=== PATIENT | female | born 1940 | race Caucasian/White ===

== ENCOUNTER 2016-10-21 07:44 | Day surgery (SDC) | payer OTHER ==
[~2016-10-21] VITALS: Ht 160 cm; Wt 48.0 kg
[~2016-10-21 07:44] MED LIST: ADVAIR HFA120 INHAL1 IH; ALBUTEROL2.5 MG/3 M IH; AMBIEN10 MG PO; AMBIEN5 MG PO; AMLODIPINE BESY10 MG PO; AMLODIPINE BESYL5 MG PO; APRESOLINE50 MG PO; ASPIR 8181 M1 PO; ASPIRIN81 M1 PO; ATORVASTATIN CA20 MG PO; AZITHROMYCIN250 MG PO; Aspirin E.C. PO; BACID1 CAP PO; BACTRIM,SEPT1 TABLET PO; BENGAY GREASEL113 GM TP; BREO ELLIPTA I1 EACH IH; BUMETANIDE1 MG PO; Bentyl PO; CALC ACETATE PO; CALCITRIOL0.25 MCG PO; CALCIUM 600 +1 EAC2 PO; CALCIUM ACETAT667 MG PO; CARVEDILOL12.5 MG PO; CARVEDILOL25 MG PO; CARVEDILOL3.125 MG PO; CARVEDILOL6.25 MG PO; CEFTIN500 MG PO; CEPHALEXIN500 MG PO; CIPRO500 MG PO; CLEOCIN150 MG PO; COREG12.5 M1 PO; COREG25 M1 PO; COREG6.25 M1 PO; COZAAR50 MG PO; CYANOCOBAL1000 MCG/2 IM; Coreg PO; DAILY VALUE1 EACH PO; DECADRON1 MG PO; DIGITEK125 MC2 PO; DOXYCYCLINE HY100 MG PO; ELIQUIS5 MG PO; ERGOCALCIF50000 UNIT PO; EVAC-U-GEN8.6 MG PO; FEOSOL325 MG PO; FERROUS SULFAT325 MG PO; FLAGYL500 MG PO; FLEXERIL5 MG PO; FLONASE16 G1 BOTH NARES; FLUTICASONE PRO16 GM BOTH NARES; FOLIC ACID1 MG PO; FUROSEMIDE40 MG PO; FUROSEMIDE80 MG PO; Feosol PO; Folvite PO; GABAPENTIN600 MG PO; HYDRALAZINE HCL50 MG PO; Heparin Sodium SC; ISOSORBIDE MONO30 MG PO; ISOSORBIDE MONO60 MG PO; K-DUR20 MEQ PO; LACTINEX PACKE1 EACH PO; LANOXIN,DIGI0.125 MG PO; LASIX40 MG PO; LEVAQUIN500 MG PO; LEVO-T50 MCG PO; LEVOTHYROXINE100 MCG PO; LEVOTHYROXINE50 MCG PO; LEVOXYL50 MCG PO; LIDOCAINE-PRIL1 EACH TP; LO-DOSE ASPIRIN81 M1 PO; LOSARTAN POTAS100 MG PO; LOSARTAN POTASS50 MG PO; Lactinex,Floranex PO; Lasix PO; NEPRO PO; NEURONTIN100 MG PO; NITRO-BID30 GM TP; NORVASC10 MG PO; NYSTATIN100000 UN1 PO; NYSTATIN15 GM TP; Norvasc PO; OMEPRAZOLE40 M1 PO; OXYCODONE HCL10 MG PO; OXYCODONE HCL5 M1 PO; Oscal, Oyster Shell PO; PERCOCET 10/1 TABLET PO; PERCOCET 5/31 TABLET PO; PRAVACHOL40 MG PO; PRAVASTATIN SOD40 MG PO; PREDNISONE10 MG PO; PREDNISONE5 MG PO; PROAIR HFA8.5 GM IH; PROVENTIL,2.5 MG/3 M IH; Proventil,Ventolin H IH; RENVELA800 MG PO; ROXICODONE5 MG PO; SENNA8.6 MG PO; SERTRALINE HCL100 MG PO; SERTRALINE HCL50 MG PO; SILVADENE20 GM TP; SODIUM BICARBO325 M1 PO; SODIUM BICARBO325 MG PO; ST. JOSEPH ASPI81 MG PO; SYNTHROID100 MCG PO; Sodium Bicarbonate PO; TRIPLE ANTIB28.35 GM TP; TUMS ULTRA1000 MG PO; VANCOCIN HCL125 MG PO; VANCOMYCIN1 GM/250 M IV; VENTOLIN HFA18 GM IH; VITAMIN B125000 MCG PO; VITAMIN C500 M1 PO; VITAMIN D1000 UNIT PO; VITAMIN D250000 UNIT PO; VITAMIN D32000 UNIT PO; VOLTAREN 1% GE100 GM TP; Vancocin Oral Soluti PO; Vitamin D PO; ZOLOFT100 MG PO; ZOLOFT25 MG PO; oxyCODONE PO; predniSONE PO
[2016-10-21 09:38] LABS: METH RESISTANT S AUREUS PCR POSITIVE (NEGATIVE)
[2016-10-21 09:39] LABS: PROBE CHECK PASS
[2016-10-22] MEDS ORDERED: CALCIUM ACETAT667 M2 PO (18:38)
[2016-10-22] MEDS ORDERED: DULERA 200 MCG/13 GM IH (18:39)
[2016-10-22] MEDS ORDERED: LUNESTA2 MG PO (18:40)
[2016-10-22] MEDS ORDERED: NEPHRO-VITE,1 TABLET PO (18:42)
[2016-10-22] MEDS ORDERED: ECONAZOLE NITRA15 GM TP (18:43)
== END 2016-10-21 10:35 | disposition home or self-care (01) ==
LOC: CATH 07:44
PROVIDERS: Surgery
DX: T82.858A Stenosis of other vascular prosthetic devices, implants and grafts, initial encounter (principal); Y83.2 Surgical operation with anastomosis, bypass or graft as the cause of abnormal reaction of the patient, or of later complication, without mention of misadventure at the time of the procedure; Z99.2 Dependence on renal dialysis
CPT/HCPCS: 87081; 87641; C1725; C1769; C1894; J0690; J1644; J2250; J3010; S0020

== ENCOUNTER 2016-12-24 11:52 | Inpatient (IN) | payer OTHER ==
[~2016-12-24] VITALS: Ht 167.6 cm; Wt 52.8 kg
[~2016-12-24 11:52] MED LIST changes: +APRESOLINE25 MG PO; +ASPIR-LOW81 MG PO; +CALCIUM ACETAT667 M2 PO; +COUMADIN1 MG PO; +DIGOXIN125 MCG PO; +DULERA 200 MCG/13 GM IH; +ECONAZOLE NITRA15 GM TP; +LUNESTA2 MG PO; +NEPHRO-VITE,1 TABLET PO
[2016-12-24 13:11] LABS: EOSINOPHIL COUNT 0.1 K/uL (0-0.3); HEMATOCRIT 36.2 % (36.0-46.0); IMMATURE GRANULOCYTE (%) 0.5 % (0.0-0.7); IMMATURE GRANULOCYTE COUNT 0.1 K/uL; INSTRUMENT ABS NEUTROPHIL CT 9.6 K/uL; LYMPHOCYTE COUNT 0.7 K/uL (1.0-2.8); MCH 30.7 PG (29.0-34.0); MCHC 31.8 G/DL (30.0-36.0); MCV 96.5 FL (83-99); MEAN PLAT.VOLUME 9.2 uM^3 (9.5-12.4); MONOCYTE (%) 7.1 % (3-12); MONOCYTE COUNT 0.8 K/uL (0-0.8); NEUTROPHIL (%) 85.1 % (45-76); NEUTROPHIL COUNT 9.6 K/uL (1.8-6.4); PLATELET COUNT 243 K/uL (156-360); RBC DIS.WIDTH-CV 14.6 % (11.8-14.6); RBC DIS.WIDTH-SD 51.1 % (39-53); RED BLOOD COUNT 3.75 M/uL (3.80-5.20); WHITE BLOOD COUNT 11.2 K/uL (4.1-10.2)
[2016-12-24 13:18] LABS: CHLORIDE 99 mEq/L (99-109); SODIUM 137 mEq/L (136-147)
[2016-12-24 13:20] LABS: GLUCOSE 95 mg/dL (70-99)
[2016-12-24 13:21] LABS: ANION GAP 23 MEQ/L (2-14)
[2016-12-24 13:22] LABS: POTASSIUM 6.6 mEq/L (3.7-5.4)
[2016-12-24 13:24] LABS: GFR ESTIMATE (CALCULATED) 3 mL/min/; UREA NITROGEN (BUN) 78 mg/dL (9-23)
[2016-12-24 22:33] LABS: CHLORIDE 99 mEq/L (99-109); POTASSIUM 3.7 mEq/L (3.7-5.4); SODIUM 136 mEq/L (136-147)
[2016-12-24 22:35] LABS: GLUCOSE 172 mg/dL (70-99)
[2016-12-24 22:36] LABS: ANION GAP 12 MEQ/L (2-14)
[2016-12-24 22:38] LABS: GFR ESTIMATE (CALCULATED) 8 mL/min/
[2016-12-24 22:39] LABS: UREA NITROGEN (BUN) 25 mg/dL (9-23)
[2016-12-24 22:44] LABS: TROP-I INTERPRETATION NEGATIVE
[2016-12-24 23:54] LABS: POINT-OF-CARE METER ID UU13113725
[2016-12-25] VITALS: BP 181/59
[2016-12-25 06:26] LABS: BASOPHIL COUNT 0.1 K/uL (0-0.1); EOSINOPHIL (%) 5.4 % (0-5); EOSINOPHIL COUNT 0.5 K/uL (0-0.3); HEMATOCRIT 35.3 % (36.0-46.0); IMMATURE GRANULOCYTE (%) 0.4 % (0.0-0.7); INSTRUMENT ABS NEUTROPHIL CT 6.6 K/uL; LYMPHOCYTE COUNT 0.8 K/uL (1.0-2.8); MCH 30.6 PG (29.0-34.0); MCHC 31.2 G/DL (30.0-36.0); MCV 98.3 FL (83-99); MEAN PLAT.VOLUME 9.1 uM^3 (9.5-12.4); MONOCYTE (%) 10.7 % (3-12); NEUTROPHIL (%) 73.7 % (45-76); NEUTROPHIL COUNT 6.6 K/uL (1.8-6.4); PLATELET COUNT 236 K/uL (156-360); RBC DIS.WIDTH-CV 14.6 % (11.8-14.6); RBC DIS.WIDTH-SD 52.7 % (39-53); RED BLOOD COUNT 3.59 M/uL (3.80-5.20); WHITE BLOOD COUNT 8.9 K/uL (4.1-10.2)
[2016-12-25 06:42] LABS: ANION GAP 12 MEQ/L (2-14); CHLORIDE 99 MEQ/L (99-109); GFR ESTIMATE (CALCULATED) 7 mL/min/; POTASSIUM 4.4 MEQ/L (3.7-5.4); SAMPLE HEMOLYSIS CHECK 0; SAMPLE ICTERIC CHECK 0; SAMPLE LIPEMIA CHECK 0; SODIUM 139 MEQ/L (136-147); UREA NITROGEN (BUN) 28 mg/dL (9-23)
[2016-12-25 06:50] LABS: GLUCOSE 87 mg/dL (70-99)
[2016-12-25 07:33] VITALS: BP 173/75
[2016-12-25 08:58] LABS: INFLUENZA A VIRAL ANTIGEN NEGATIVE; INFLUENZA B VIRAL ANTIGEN NEGATIVE
[2016-12-25] MEDS ORDERED: GABAPENTIN100 MG PO (10:35)
[2016-12-25] MEDS ORDERED: LEVO-T25 MCG PO (10:36)
[2016-12-25] MEDS ORDERED: ARNUITY ELLIP100 MCG AEROSOL (10:37)
[2016-12-25] MEDS ORDERED: OXYCODONE HCL10 MG PO (10:38)
[2016-12-25] MEDS ORDERED: SERTRALINE HCL25 MG PO (10:39)
[2016-12-25] MEDS ORDERED: COUMADIN1 MG PO (10:40)
[2016-12-25 13:03] LABS: INTER. NORMALIZED RATIO 2.6; PROTHROMBIN TIME 27.1 (9.2-11.2); PTT 45.3 (25-32)
[2016-12-25 15:15] VITALS: BP 167/74
[2016-12-25 21:04] LABS: POINT-OF-CARE METER ID UU13113725
[2016-12-25 22:58] VITALS: BP 167/95
[2016-12-26 06:33] LABS: POINT-OF-CARE METER ID UU13113725
[2016-12-26 07:38] LABS: BASOPHIL COUNT 0.1 K/uL (0-0.1); EOSINOPHIL (%) 7.7 % (0-5); EOSINOPHIL COUNT 0.6 K/uL (0-0.3); HEMATOCRIT 35.4 % (36.0-46.0); IMMATURE GRANULOCYTE (%) 0.4 % (0.0-0.7); INSTRUMENT ABS NEUTROPHIL CT 5.1 K/uL; LYMPHOCYTE COUNT 0.8 K/uL (1.0-2.8); MCH 30.4 PG (29.0-34.0); MCHC 30.8 G/DL (30.0-36.0); MCV 98.6 FL (83-99); MONOCYTE COUNT 0.7 K/uL (0-0.8); NEUTROPHIL (%) 69.7 % (45-76); NEUTROPHIL COUNT 5.1 K/uL (1.8-6.4); PLATELET COUNT 243 K/uL (156-360); RBC DIS.WIDTH-CV 14.4 % (11.8-14.6); RBC DIS.WIDTH-SD 51.5 % (39-53); RED BLOOD COUNT 3.59 M/uL (3.80-5.20); WHITE BLOOD COUNT 7.3 K/uL (4.1-10.2)
[2016-12-26 07:42] VITALS: BP 163/70
[2016-12-26 08:02] LABS: PROTHROMBIN TIME 21.2 (9.2-11.2)
[2016-12-26 08:05] LABS: ALKALINE PHOSPHATASE 87 IU/L (3-129); ANION GAP 16 MEQ/L (2-14); CHLORIDE 99 MEQ/L (99-109); GFR ESTIMATE (CALCULATED) 5 mL/min/; POTASSIUM 4.4 MEQ/L (3.7-5.4); SAMPLE HEMOLYSIS CHECK 0; SAMPLE ICTERIC CHECK 0; SAMPLE LIPEMIA CHECK 0; SODIUM 139 MEQ/L (136-147); TOTAL BILIRUBIN 0.5 MG/DL (0.0-1.0); UREA NITROGEN (BUN) 41 mg/dL (9-23)
[2016-12-26 08:06] LABS: GLUCOSE 132 mg/dL (70-99)
[2016-12-26 12:05] LABS: POINT-OF-CARE METER ID UU13113725
[2016-12-26 15:00] VITALS: BP 160/78
[2016-12-26 22:10] VITALS: BP 174/75
[2016-12-27 06:03] LABS: POINT-OF-CARE METER ID UU13113725
[2016-12-27 06:44] LABS: INTER. NORMALIZED RATIO 1.9; PROTHROMBIN TIME 20.1 (9.2-11.2)
[2016-12-27 07:16] VITALS: BP 172/72
[2016-12-27 07:21] LABS: ALKALINE PHOSPHATASE 84 IU/L (3-129); ANION GAP 16 MEQ/L (2-14); CHLORIDE 98 MEQ/L (99-109); GFR ESTIMATE (CALCULATED) 4 mL/min/; SAMPLE HEMOLYSIS CHECK 0; SAMPLE ICTERIC CHECK 0; SAMPLE LIPEMIA CHECK 0; SODIUM 139 MEQ/L (136-147); TOTAL BILIRUBIN 0.5 MG/DL (0.0-1.0); UREA NITROGEN (BUN) 48 mg/dL (9-23)
[2016-12-27 07:22] LABS: GLUCOSE 76 mg/dL (70-99)
[2016-12-27 10:29] LABS: EOSINOPHIL (%) 10.8 % (0-5); EOSINOPHIL COUNT 0.8 K/uL (0-0.3); HEMATOCRIT 32.5 % (36.0-46.0); IMMATURE GRANULOCYTE (%) 0.8 % (0.0-0.7); IMMATURE GRANULOCYTE COUNT 0.1 K/uL; INSTRUMENT ABS NEUTROPHIL CT 5.4 K/uL; LYMPHOCYTE COUNT 0.7 K/uL (1.0-2.8); MCH 30.8 PG (29.0-34.0); MCHC 31.7 G/DL (30.0-36.0); MCV 97.3 FL (83-99); MEAN PLAT.VOLUME 9.5 uM^3 (9.5-12.4); MONOCYTE (%) 6.8 % (3-12); MONOCYTE COUNT 0.5 K/uL (0-0.8); NEUTROPHIL (%) 71.9 % (45-76); NEUTROPHIL COUNT 5.4 K/uL (1.8-6.4); PLATELET COUNT 265 K/uL (156-360); RBC DIS.WIDTH-CV 14.3 % (11.8-14.6); RBC DIS.WIDTH-SD 50.3 % (39-53); RED BLOOD COUNT 3.34 M/uL (3.80-5.20); WHITE BLOOD COUNT 7.5 K/uL (4.1-10.2)
[2016-12-27 12:41] LABS: HBSG INDEX 0.21
[2016-12-27 14:22] VITALS: BP 147/71
[2016-12-27 16:00] VITALS: BP 164/73
[2016-12-27 17:02] LABS: POINT-OF-CARE METER ID UU13113725
[2016-12-27 21:35] LABS: POINT-OF-CARE METER ID UU13113725
[2016-12-27 22:43] VITALS: BP 138/62
[2016-12-28 06:12] LABS: HEMATOCRIT 35.3 % (36.0-46.0); MCH 31.1 PG (29.0-34.0); MCHC 31.4 G/DL (30.0-36.0); MCV 98.9 FL (83-99); MEAN PLAT.VOLUME 9.1 uM^3 (9.5-12.4); PLATELET COUNT 252 K/uL (156-360); RBC DIS.WIDTH-CV 14.2 % (11.8-14.6); RBC DIS.WIDTH-SD 51.7 % (39-53); RED BLOOD COUNT 3.57 M/uL (3.80-5.20); WHITE BLOOD COUNT 7.1 K/uL (4.1-10.2)
[2016-12-28 06:25] LABS: PROTHROMBIN TIME 20.4 (9.2-11.2)
[2016-12-28 06:53] LABS: ANION GAP 12 MEQ/L (2-14); CHLORIDE 101 MEQ/L (99-109); POTASSIUM 4.5 MEQ/L (3.7-5.4); SAMPLE HEMOLYSIS CHECK 0; SAMPLE ICTERIC CHECK 0; SAMPLE LIPEMIA CHECK 0; SODIUM 139 MEQ/L (136-147); UREA NITROGEN (BUN) 26 mg/dL (9-23)
[2016-12-28 06:54] LABS: GFR ESTIMATE (CALCULATED) 8 mL/min/; GLUCOSE 100 mg/dL (70-99)
[2016-12-28] MEDS ORDERED: CEFTIN500 MG PO (07:41)
[2016-12-28] MEDS ORDERED: ASPIR-LOW81 MG PO (07:41)
[2016-12-28] MEDS ORDERED: NICOTINE PATCH1 EAC2 TD (07:41)
[2016-12-28] MEDS ORDERED: PRAVASTATIN SOD40 MG PO (07:41)
[2016-12-28] MEDS ORDERED: CARVEDILOL3.125 MG PO (07:41)
[2016-12-28 07:47] VITALS: BP 144/69
[2016-12-28 12:15] LABS: POINT-OF-CARE METER ID UU13113725
== END 2016-12-28 13:05 | disposition home health service (06) | DRG 193 ==
LOC: EME 11:52 → 5EAST 21:43 → EDOF 21:43 → 5EAST 22:37
PROVIDERS: Emergency Medicine; Hospitalist; Internal Medicine; Pediatrics; Physician Assistant
PROC: 5A1D60Z (ICD-10-PCS; principal; 2016-12-25)
DX: J18.9 Pneumonia, unspecified organism (principal); E87.70 Fluid overload, unspecified; I12.0 Hypertensive chronic kidney disease with stage 5 chronic kidney disease or end stage renal disease; N18.6 End stage renal disease; E11.22 Type 2 diabetes mellitus with diabetic chronic kidney disease; I63.9 Cerebral infarction, unspecified; I42.9 Cardiomyopathy, unspecified; S00.83XA Contusion of other part of head, initial encounter; Z99.2 Dependence on renal dialysis; D63.1 Anemia in chronic kidney disease; I50.22 Chronic systolic (congestive) heart failure; E87.5 Hyperkalemia; R06.02 Shortness of breath; J44.9 Chronic obstructive pulmonary disease, unspecified; F41.9 Anxiety disorder, unspecified; F32.9 Major depressive disorder, single episode, unspecified; J90 Pleural effusion, not elsewhere classified; I82.511 Chronic embolism and thrombosis of right femoral vein; G47.30 Sleep apnea, unspecified; I48.0 Paroxysmal atrial fibrillation; M19.90 Unspecified osteoarthritis, unspecified site; K21.9 Gastro-esophageal reflux disease without esophagitis; W19.XXXA Unspecified fall, initial encounter; F17.210 Nicotine dependence, cigarettes, uncomplicated; I70.209 Unspecified atherosclerosis of native arteries of extremities, unspecified extremity; Y95 Nosocomial condition; I25.10 Atherosclerotic heart disease of native coronary artery without angina pectoris; E55.9 Vitamin D deficiency, unspecified; Z79.01 Long term (current) use of anticoagulants; Z86.73 Personal history of transient ischemic attack (TIA), and cerebral infarction without residual deficits; Z86.711 Personal history of pulmonary embolism; I25.2 Old myocardial infarction; Z98.84 Bariatric surgery status
CPT/HCPCS: 70450; 70486; 71010; 71020; 73090; 73502; 78582; 80048; 80048 91; 80053; 80069; 80202; 82330; 82948; 84100; 84484; 85025; 85027; 85610; 85730; 87040; 87340; 87449; 87502; 93005; 93880; 93970; 94640; 94640 76; 94667; 94799; 99202; 99281; 99285; A9540; A9567; J0360; J0456; J0692; J0696; J1170; J1270; J1644; J1815; J3370; J7050

== ENCOUNTER 2017-01-03 06:48 | Emergency (ER) | payer OTHER ==
[~2017-01-03] VITALS: Ht 160 cm; Wt 47.7 kg
[~2017-01-03 06:48] MED LIST changes: +ARNUITY ELLIP100 MCG AEROSOL; +GABAPENTIN100 MG PO; +LEVO-T25 MCG PO; +NICOTINE PATCH1 EAC2 TD; +SERTRALINE HCL25 MG PO
[2017-01-03 07:59] LABS: BASOPHIL COUNT 0.1 K/uL (0-0.1); EOSINOPHIL (%) 3.9 % (0-5); EOSINOPHIL COUNT 0.5 K/uL (0-0.3); HEMATOCRIT 36.6 % (36.0-46.0); IMMATURE GRANULOCYTE (%) 0.6 % (0.0-0.7); IMMATURE GRANULOCYTE COUNT 0.1 K/uL; INSTRUMENT ABS NEUTROPHIL CT 9.7 K/uL; MCH 31.1 PG (29.0-34.0); MCHC 30.9 G/DL (30.0-36.0); MCV 100.8 FL (83-99); MEAN PLAT.VOLUME 8.8 uM^3 (9.5-12.4); MONOCYTE (%) 7.1 % (3-12); MONOCYTE COUNT 0.9 K/uL (0-0.8); NEUTROPHIL (%) 79.7 % (45-76); NEUTROPHIL COUNT 9.7 K/uL (1.8-6.4); PLATELET COUNT 293 K/uL (156-360); RBC DIS.WIDTH-CV 14.6 % (11.8-14.6); RED BLOOD COUNT 3.63 M/uL (3.80-5.20); WHITE BLOOD COUNT 12.2 K/uL (4.1-10.2)
[2017-01-03 08:06] LABS: CHLORIDE 103 mEq/L (99-109); INTER. NORMALIZED RATIO 2.2; POTASSIUM 5.1 mEq/L (3.7-5.4); PROTHROMBIN TIME 23.4 (9.2-11.2); PTT 39.8 (25-32); SODIUM 140 mEq/L (136-147)
[2017-01-03 08:07] LABS: GLUCOSE 82 mg/dL (70-99)
[2017-01-03 08:09] LABS: ANION GAP 13 MEQ/L (2-14)
[2017-01-03 08:11] LABS: GFR ESTIMATE (CALCULATED) 5 mL/min/
[2017-01-03 08:17] LABS: UREA NITROGEN (BUN) 43 mg/dL (9-23)
[2017-01-03 11:44] VITALS: BP 175/83
== END 2017-01-03 11:45 | disposition home or self-care (01) ==
LOC: EME 06:48
PROVIDERS: Emergency Medicine
DX: J44.9 Chronic obstructive pulmonary disease, unspecified (principal); E11.22 Type 2 diabetes mellitus with diabetic chronic kidney disease; N18.9 Chronic kidney disease, unspecified; H11.31 Conjunctival hemorrhage, right eye; I50.9 Heart failure, unspecified; I25.2 Old myocardial infarction; Z99.2 Dependence on renal dialysis; F17.200 Nicotine dependence, unspecified, uncomplicated; Z86.73 Personal history of transient ischemic attack (TIA), and cerebral infarction without residual deficits; Z99.81 Dependence on supplemental oxygen; Z79.01 Long term (current) use of anticoagulants; Z88.7 Allergy status to serum and vaccine; Z88.8 Allergy status to other drugs, medicaments and biological substances
CPT/HCPCS: 71020; 71250; 80048; 85025; 85610; 85730; 93005; 94640; 99281; 99285

== ENCOUNTER 2017-01-11 07:13 | Day surgery (SDC) | payer OTHER ==
[~2017-01-11] VITALS: Ht 160 cm; Wt 47.6 kg
[~2017-01-11 07:13] MED LIST changes: +CLONAZEPAM0.5 MG PO
[2017-01-11 10:05] LABS: METH RESISTANT S AUREUS PCR NEGATIVE (NEGATIVE)
[2017-01-11 10:08] LABS: PROBE CHECK PASS; SPECIMEN PROCESSING CONTROL PASS
== END 2017-01-11 10:45 | disposition home or self-care (01) ==
LOC: CATH 07:13
PROVIDERS: Surgery
DX: T82.868A Thrombosis due to vascular prosthetic devices, implants and grafts, initial encounter (principal); I12.0 Hypertensive chronic kidney disease with stage 5 chronic kidney disease or end stage renal disease; N18.6 End stage renal disease; Z99.2 Dependence on renal dialysis; J44.9 Chronic obstructive pulmonary disease, unspecified; Z86.73 Personal history of transient ischemic attack (TIA), and cerebral infarction without residual deficits; E78.00 Pure hypercholesterolemia, unspecified; Z98.84 Bariatric surgery status; Z79.01 Long term (current) use of anticoagulants; Z79.899 Other long term (current) drug therapy; F17.210 Nicotine dependence, cigarettes, uncomplicated
CPT/HCPCS: 87641; C1725; C1757; C1769; C1894; C2628; J0690; J1644; J2250; J3010; S0020

== ENCOUNTER 2017-10-05 12:00 | Day surgery (SDC) | payer OTHER ==
[~2017-10-05] VITALS: Ht 160 cm; Wt 45.0 kg
[2017-10-05 12:56] VITALS: BP 179/79
[2017-10-05 13:03] LABS: HEMOGLOBIN 11.1 G/DL (11.9-15.5); MCV 98.8 FL (83-99)
[2017-10-05 13:12] LABS: INTER. NORMALIZED RATIO 1.2
[2017-10-05 13:13] LABS: CHLORIDE 102 mEq/L (99-109); POTASSIUM 5.5 mEq/L (3.7-5.4); SODIUM 142 mEq/L (136-147)
[2017-10-05 13:14] LABS: PTT 29.7 SEC (25-37)
[2017-10-05 13:15] LABS: GLUCOSE 81 mg/dL (70-99)
[2017-10-05 13:19] LABS: CREATININE 7.8 mg/dL (0.6-1.3); GFR ESTIMATE (CALCULATED) 5 mL/min/
[2017-10-05 13:20] LABS: UREA NITROGEN (BUN) 45 mg/dL (9-23)
[2017-10-05 20:25] VITALS: BP 175/73
[2017-10-05 21:05] VITALS: BP 130/60
== END 2017-10-05 21:10 | disposition home or self-care (01) ==
LOC: SDC 12:00
PROVIDERS: Surgery
DX: T82.868A Thrombosis due to vascular prosthetic devices, implants and grafts, initial encounter (principal); I12.0 Hypertensive chronic kidney disease with stage 5 chronic kidney disease or end stage renal disease; N18.6 End stage renal disease; Z99.2 Dependence on renal dialysis; J44.9 Chronic obstructive pulmonary disease, unspecified; Z86.73 Personal history of transient ischemic attack (TIA), and cerebral infarction without residual deficits; I25.2 Old myocardial infarction; E03.9 Hypothyroidism, unspecified; F17.200 Nicotine dependence, unspecified, uncomplicated; Z79.01 Long term (current) use of anticoagulants; Z79.82 Long term (current) use of aspirin
CPT/HCPCS: 80048; 85014; 85018; 85610; 85730; 87641; 93005; C1725; C1757; C1769; C1894; C2628; J0690; J1644; J2405; J3010

== ENCOUNTER 2017-10-21 08:44 | Day surgery (SDC) | payer OTHER ==
[~2017-10-21] VITALS: Ht 160 cm; Wt 43.4 kg
[2017-10-21 09:24] VITALS: BP 133/80
[2017-10-21 09:42] LABS: INTER. NORMALIZED RATIO 1.2
[2017-10-21 09:45] LABS: HEMOGLOBIN 11.4 G/DL (11.9-15.5); MCH 31.8 PG (29.0-34.0); MCHC 31.7 G/DL (30.0-36.0); MCV 100.6 FL (83-99); PLATELET COUNT 260 K/uL (156-360); PTT 27.4 SEC (25-37); RBC DIS.WIDTH-CV 14.5 % (11.8-14.6); RBC DIS.WIDTH-SD 52.5 % (39-53); RED BLOOD COUNT 3.58 M/uL (3.80-5.20); WHITE BLOOD COUNT 7.5 K/uL (4.1-10.2)
[2017-10-21 10:04] LABS: CHLORIDE 94 MEQ/L (99-109); CREATININE 6.6 MG/DL (0.6-1.3); GFR ESTIMATE (CALCULATED) 6 mL/min/; GLUCOSE 96 mg/dL (70-99); POTASSIUM 4.9 MEQ/L (3.7-5.4); SODIUM 138 MEQ/L (136-147); UREA NITROGEN (BUN) 29 mg/dL (9-23)
[2017-10-21 15:30] VITALS: BP 182/80
== END 2017-10-21 18:26 | disposition home or self-care (01) ==
LOC: SDC 08:44 → 2EAST 08:45
PROVIDERS: Thoracic Surgery (Cardiothoracic Vascular Surgery)
DX: T82.868A Thrombosis due to vascular prosthetic devices, implants and grafts, initial encounter (principal); T82.858A Stenosis of other vascular prosthetic devices, implants and grafts, initial encounter; I12.0 Hypertensive chronic kidney disease with stage 5 chronic kidney disease or end stage renal disease; N18.6 End stage renal disease; Z99.81 Dependence on supplemental oxygen; J44.9 Chronic obstructive pulmonary disease, unspecified; F17.200 Nicotine dependence, unspecified, uncomplicated; E07.9 Disorder of thyroid, unspecified; E78.5 Hyperlipidemia, unspecified; Z86.73 Personal history of transient ischemic attack (TIA), and cerebral infarction without residual deficits; Z98.84 Bariatric surgery status; Z79.01 Long term (current) use of anticoagulants; Z88.7 Allergy status to serum and vaccine
CPT/HCPCS: 80048; 85027; 85610; 85730; C1725; C1757; C1769; C1894; C2628; G0378; J0690; J1644; J2250; J2405; J3010

== ENCOUNTER 2017-10-31 11:34 | Day surgery (SDC) | payer OTHER ==
[2017-10-31 12:41] LABS: INTER. NORMALIZED RATIO 1.4
[2017-10-31 12:43] LABS: PTT 24.8 SEC (25-37)
== END 2017-10-31 15:20 | disposition home or self-care (01) ==
LOC: CATH 11:34
PROVIDERS: Surgery
DX: T82.868A Thrombosis due to vascular prosthetic devices, implants and grafts, initial encounter (principal); Y83.2 Surgical operation with anastomosis, bypass or graft as the cause of abnormal reaction of the patient, or of later complication, without mention of misadventure at the time of the procedure; N18.6 End stage renal disease; Z99.2 Dependence on renal dialysis
CPT/HCPCS: 85610; 85730; 87641; C1725; C1757; C1769; C1894; C2628; J0690; J1644; J2250; J3010; S0020

== ENCOUNTER 2017-12-02 11:34 | Emergency (ER) | payer OTHER ==
[~2017-12-02] VITALS: Ht 160 cm; Wt 43.5 kg
[2017-12-02 12:11] LABS: HEMATOCRIT 37.3 % (36.0-46.0); HEMOGLOBIN 11.8 G/DL (11.9-15.5); MCH 30.4 PG (29.0-34.0); MCHC 31.6 G/DL (30.0-36.0); MCV 96.1 FL (83-99); PLATELET COUNT 217 K/uL (156-360); RBC DIS.WIDTH-CV 17.1 % (11.8-14.6); RBC DIS.WIDTH-SD 58.8 % (39-53); RED BLOOD COUNT 3.88 M/uL (3.80-5.20); WHITE BLOOD COUNT 5.4 K/uL (4.1-10.2)
[2017-12-02 12:33] LABS: PTT 36.8 SEC (25-37)
[2017-12-02 12:37] LABS: CHLORIDE 100 mEq/L (99-109); SODIUM 143 mEq/L (136-147)
[2017-12-02 12:38] LABS: GLUCOSE 99 mg/dL (70-99)
[2017-12-02 12:42] LABS: CREATININE 6.8 mg/dL (0.6-1.3); GFR ESTIMATE (CALCULATED) 6 mL/min/
[2017-12-02 12:43] LABS: UREA NITROGEN (BUN) 39 mg/dL (9-23)
[2017-12-02 12:53] LABS: INTER. NORMALIZED RATIO 1.9
[2017-12-02 13:39] VITALS: BP 162/81
== END 2017-12-02 13:39 | disposition home or self-care (01) ==
LOC: EME 11:34
PROVIDERS: Emergency Medicine
DX: T82.868A Thrombosis due to vascular prosthetic devices, implants and grafts, initial encounter (principal); T45.515A Adverse effect of anticoagulants, initial encounter; N19 Unspecified kidney failure; Z99.2 Dependence on renal dialysis; I44.7 Left bundle-branch block, unspecified; R94.31 Abnormal electrocardiogram [ECG] [EKG]; J44.9 Chronic obstructive pulmonary disease, unspecified; E11.9 Type 2 diabetes mellitus without complications; K21.9 Gastro-esophageal reflux disease without esophagitis; I25.2 Old myocardial infarction; B19.20 Unspecified viral hepatitis C without hepatic coma; F31.9 Bipolar disorder, unspecified; F17.200 Nicotine dependence, unspecified, uncomplicated; Z79.891 Long term (current) use of opiate analgesic; Z79.01 Long term (current) use of anticoagulants; Z99.81 Dependence on supplemental oxygen; Z98.84 Bariatric surgery status; Z86.19 Personal history of other infectious and parasitic diseases; Z86.79 Personal history of other diseases of the circulatory system; Z86.73 Personal history of transient ischemic attack (TIA), and cerebral infarction without residual deficits; Z85.9 Personal history of malignant neoplasm, unspecified; Z91.011 Allergy to milk products; Z88.7 Allergy status to serum and vaccine; Z88.8 Allergy status to other drugs, medicaments and biological substances
CPT/HCPCS: 80048; 85027; 85610; 85730; 93005; 99281; 99284

== ENCOUNTER 2017-12-03 09:07 | Day surgery (SDC) | payer OTHER ==
[2017-12-03 09:38] VITALS: BP 153/77
[2017-12-03 10:05] LABS: INTER. NORMALIZED RATIO 2.2
[2017-12-03 10:08] LABS: PTT 41.7 SEC (25-37)
[2017-12-03 10:21] LABS: CHLORIDE 101 MEQ/L (99-109); CREATININE 7.7 MG/DL (0.6-1.3); GFR ESTIMATE (CALCULATED) 5 mL/min/; POTASSIUM 4.4 MEQ/L (3.7-5.4); SODIUM 144 MEQ/L (136-147); UREA NITROGEN (BUN) 47 mg/dL (9-23)
[2017-12-03 10:22] LABS: GLUCOSE 49 mg/dL (70-99)
[2017-12-14] MEDS ORDERED: PLAVIX75 MG PO (13:18)
== END 2017-12-03 15:48 | disposition left against medical advice (07) ==
LOC: SDC 09:07 → 2EAST 09:10
PROVIDERS: Thoracic Surgery (Cardiothoracic Vascular Surgery)
PROC: 05JYXZZ Inspection of Upper Vein, External Approach (ICD-10-PCS; principal; 2017-12-03)
DX: T82.898A Other specified complication of vascular prosthetic devices, implants and grafts, initial encounter (principal); E11.649 Type 2 diabetes mellitus with hypoglycemia without coma; Z53.29 Procedure and treatment not carried out because of patient's decision for other reasons; E11.22 Type 2 diabetes mellitus with diabetic chronic kidney disease; N18.6 End stage renal disease; Z99.2 Dependence on renal dialysis
CPT/HCPCS: 80048; 82948; 85610; 85730; G0378

== ENCOUNTER 2017-12-06 07:37 | Day surgery (SDC) | payer OTHER ==
[2017-12-06 08:40] LABS: INTER. NORMALIZED RATIO 1.5
[2017-12-06 08:48] LABS: CHLORIDE 104 mEq/L (99-109); POTASSIUM 5.1 mEq/L (3.7-5.4); SODIUM 145 mEq/L (136-147)
[2017-12-06 08:55] LABS: UREA NITROGEN (BUN) 70 mg/dL (9-23)
[2017-12-06 08:56] LABS: GLUCOSE 98 mg/dL (70-99)
[2017-12-06 09:04] LABS: GFR ESTIMATE (CALCULATED) 3 mL/min/
[2017-12-06 09:05] LABS: CREATININE 11.5 mg/dL (0.6-1.3)
== END 2017-12-06 10:45 | disposition home or self-care (01) ==
LOC: CATH 07:37
PROVIDERS: Surgery
DX: T82.868A Thrombosis due to vascular prosthetic devices, implants and grafts, initial encounter (principal); I12.9 Hypertensive chronic kidney disease with stage 1 through stage 4 chronic kidney disease, or unspecified chronic kidney disease; N18.6 End stage renal disease; Z99.2 Dependence on renal dialysis; Z86.73 Personal history of transient ischemic attack (TIA), and cerebral infarction without residual deficits; Y83.2 Surgical operation with anastomosis, bypass or graft as the cause of abnormal reaction of the patient, or of later complication, without mention of misadventure at the time of the procedure
CPT/HCPCS: 80048; 85610; 87641; C1725; C1757; C1769; C1894; C2628; J0690; J1644; J2250; J3010; S0020

== ENCOUNTER 2017-12-07 08:20 | Day surgery (SDC) | payer OTHER | END 2017-12-07 11:12 | disposition home or self-care (01) | LOC: CATH 08:20 | DX: T82.868A Thrombosis due to vascular prosthetic devices, implants and grafts, initial encounter (principal); Y83.2 Surgical operation with anastomosis, bypass or graft as the cause of abnormal reaction of the patient, or of later complication, without mention of misadventure at the time of the procedure; N18.6 End stage renal disease; Z99.2 Dependence on renal dialysis | CPT/HCPCS: C1725; C1757; C1769; C1894; C2628; J0690; J1200; J1644; J2250; S0020 ==

== ENCOUNTER 2017-12-14 13:55 | Day surgery (SDC) | payer OTHER ==
[~2017-12-14] VITALS: Ht 160 cm; Wt 44.0 kg
[~2017-12-14 13:55] MED LIST changes: +PLAVIX75 MG PO
[2017-12-14 14:44] LABS: BASOPHIL (%) 0.7 % (0-1); BASOPHIL COUNT 0.1 K/uL (0-0.1); EOSINOPHIL (%) 0.7 % (0-5); EOSINOPHIL COUNT 0.1 K/uL (0-0.3); HEMATOCRIT 35.3 % (36.0-46.0); IMMATURE GRANULOCYTE (%) 0.4 % (0.0-0.7); LYMPHOCYTE (%) 14.8 % (15-42); LYMPHOCYTE COUNT 1.2 K/uL (1.0-2.8); MCH 30.1 PG (29.0-34.0); MCHC 31.2 G/DL (30.0-36.0); MCV 96.7 FL (83-99); MONOCYTE (%) 6.8 % (3-12); MONOCYTE COUNT 0.6 K/uL (0-0.8); NEUTROPHIL (%) 76.6 % (45-76); NEUTROPHIL COUNT 6.3 K/uL (1.8-6.4); RBC DIS.WIDTH-CV 17.7 % (11.8-14.6); RBC DIS.WIDTH-SD 60.9 % (39-53); RED BLOOD COUNT 3.65 M/uL (3.80-5.20); WHITE BLOOD COUNT 8.2 K/uL (4.1-10.2)
[2017-12-14 14:47] VITALS: BP 127/85
[2017-12-14 14:47] LABS: PLATELET COUNT 335 K/uL (156-360)
[2017-12-14 14:49] LABS: INTER. NORMALIZED RATIO 1.2
[2017-12-14 14:52] LABS: PTT 31.3 SEC (25-37)
[2017-12-14 15:01] LABS: CHLORIDE 95 MEQ/L (99-109); CREATININE 7.2 MG/DL (0.6-1.3); GFR ESTIMATE (CALCULATED) 6 mL/min/; GLUCOSE 88 mg/dL (70-99); POTASSIUM 3.8 MEQ/L (3.7-5.4); SODIUM 140 MEQ/L (136-147); UREA NITROGEN (BUN) 36 mg/dL (9-23)
[2017-12-14 20:55] VITALS: BP 120/56
== END 2017-12-14 21:25 | disposition home or self-care (01) ==
LOC: SDC 13:55
PROVIDERS: Surgery
DX: T82.868A Thrombosis due to vascular prosthetic devices, implants and grafts, initial encounter (principal); Y83.2 Surgical operation with anastomosis, bypass or graft as the cause of abnormal reaction of the patient, or of later complication, without mention of misadventure at the time of the procedure; I12.0 Hypertensive chronic kidney disease with stage 5 chronic kidney disease or end stage renal disease; N18.6 End stage renal disease; Z99.2 Dependence on renal dialysis; E03.9 Hypothyroidism, unspecified; J44.9 Chronic obstructive pulmonary disease, unspecified; I44.7 Left bundle-branch block, unspecified; Z86.73 Personal history of transient ischemic attack (TIA), and cerebral infarction without residual deficits
CPT/HCPCS: 80048; 85025; 85610; 85730; 87641; 93005; C1757; C1768; C2628; J0690; J1644; J2720; J3010; S0020

== ENCOUNTER 2018-01-04 10:50 | Inpatient (IN) | payer OTHER ==
[~2018-01-04] VITALS: Ht 160 cm; Wt 46.6 kg
[2018-01-04 11:26] LABS: HEMATOCRIT 32.8 % (36.0-46.0); HEMOGLOBIN 10.4 G/DL (11.9-15.5); MCH 29.6 PG (29.0-34.0); MCHC 31.7 G/DL (30.0-36.0); MCV 93.4 FL (83-99); PLATELET COUNT 229 K/uL (156-360); RBC DIS.WIDTH-CV 17.7 % (11.8-14.6); RBC DIS.WIDTH-SD 59.9 % (39-53); RED BLOOD COUNT 3.51 M/uL (3.80-5.20); WHITE BLOOD COUNT 6.7 K/uL (4.1-10.2)
[2018-01-04 11:33] LABS: ALBUMIN 1.8 g/dL (3.2-4.8); CHLORIDE 96 mEq/L (99-109); SODIUM 138 mEq/L (136-147)
[2018-01-04 11:35] LABS: GLUCOSE 126 mg/dL (70-99); TOTAL PROTEIN 5.5 g/dL (6.4-8.3)
[2018-01-04 11:37] LABS: TOTAL BILIRUBIN 0.5 mg/dL (0.0-1.0)
[2018-01-04 11:39] LABS: ALKALINE PHOSPHATASE 133 IU/L (3-129); CREATININE 6.6 mg/dL (0.6-1.3); GFR ESTIMATE (CALCULATED) 6 mL/min/
[2018-01-04 11:40] LABS: UREA NITROGEN (BUN) 38 mg/dL (9-23)
[2018-01-04 11:41] LABS: AST (GOT) 16 IU/L (2-34)
[2018-01-04 11:42] LABS: ALT (GPT) 3 IU/L (3-49)
[2018-01-04] MEDS ORDERED: ADVAIR 250/501 DISK IH (13:55)
[2018-01-04] MEDS ORDERED: XIIDRA1 EACH BOTH EYES (13:55)
[2018-01-04] MEDS ORDERED: CLOPIDOGREL75 MG PO (13:56)
[2018-01-04] MEDS ORDERED: OMEPRAZOLE40 M1 PO (13:56)
[2018-01-04] MEDS ORDERED: SERTRALINE HCL50 MG PO (13:57)
[2018-01-04] MEDS ORDERED: VENTOLIN HFA18 GM IH (13:58)
[2018-01-04 15:04] LABS: LIPASE 10 U/L (1.0-51.0)
[2018-01-04 17:19] VITALS: BP 120/60
[2018-01-04 19:44] VITALS: BP 134/75
[2018-01-04 23:43] VITALS: BP 118/67
[2018-01-05 02:40] LABS: C DIFF TOXIN NEGATIVE (NEGATIVE)
[2018-01-05 04:10] VITALS: BP 125/66
[2018-01-05 06:40] LABS: BASOPHIL (%) 0.5 % (0-1); EOSINOPHIL (%) 0.4 % (0-5); HEMATOCRIT 32.7 % (36.0-46.0); HEMOGLOBIN 10.1 G/DL (11.9-15.5); IMMATURE GRANULOCYTE (%) 0.4 % (0.0-0.7); LYMPHOCYTE (%) 15.4 % (15-42); LYMPHOCYTE COUNT 0.8 K/uL (1.0-2.8); MCH 28.9 PG (29.0-34.0); MCHC 30.9 G/DL (30.0-36.0); MCV 93.4 FL (83-99); MONOCYTE (%) 5.1 % (3-12); MONOCYTE COUNT 0.3 K/uL (0-0.8); NEUTROPHIL (%) 78.2 % (45-76); NEUTROPHIL COUNT 4.3 K/uL (1.8-6.4); PLATELET COUNT 217 K/uL (156-360); RBC DIS.WIDTH-CV 17.8 % (11.8-14.6); RBC DIS.WIDTH-SD 59.9 % (39-53); WHITE BLOOD COUNT 5.5 K/uL (4.1-10.2)
[2018-01-05 07:21] LABS: ALBUMIN 1.8 G/DL (3.2-4.8); ALKALINE PHOSPHATASE 121 IU/L (3-129); ALT (GPT) 3 IU/L (3-49); AST (GOT) 14 IU/L (2-34); CHLORIDE 97 MEQ/L (99-109); DIRECT BILIRUBIN 0.1 mg/dL (0.0-0.3); GFR ESTIMATE (CALCULATED) 6 mL/min/; GLUCOSE 96 mg/dL (70-99); POTASSIUM 4.6 MEQ/L (3.7-5.4); SODIUM 139 MEQ/L (136-147); TOTAL BILIRUBIN 0.4 MG/DL (0.0-1.0); TOTAL PROTEIN 5.4 G/DL (6.4-8.3); UREA NITROGEN (BUN) 41 mg/dL (9-23)
[2018-01-05 08:05] VITALS: BP 117/65
[2018-01-05 12:48] VITALS: BP 100/58
[2018-01-05 16:57] VITALS: BP 108/58
[2018-01-05 18:47] LABS: INTER. NORMALIZED RATIO 1.2
[2018-01-05 23:44] VITALS: BP 119/59
[2018-01-06] VITALS (7 sets, daily range): BP systolic 95–128; BP diastolic 51–66
[2018-01-06 06:37] LABS: INTER. NORMALIZED RATIO 1.2
[2018-01-06 09:07] LABS: HEMATOCRIT 31.4 % (36.0-46.0); HEMOGLOBIN 9.8 G/DL (11.9-15.5); MCH 29.3 PG (29.0-34.0); MCHC 31.2 G/DL (30.0-36.0); MCV 93.7 FL (83-99); NRBC (%) 1.6 /100 WBC (0-0); PLATELET COUNT 257 K/uL (156-360); RBC DIS.WIDTH-CV 17.6 % (11.8-14.6); RBC DIS.WIDTH-SD 60.1 % (39-53); RED BLOOD COUNT 3.35 M/uL (3.80-5.20); WHITE BLOOD COUNT 4.4 K/uL (4.1-10.2)
[2018-01-06 09:19] LABS: ALBUMIN 1.8 G/DL (3.2-4.8); CHLORIDE 102 MEQ/L (99-109); GFR ESTIMATE (CALCULATED) 8 mL/min/; GLUCOSE 98 mg/dL (70-99); PHOSPHORUS 5.2 mg/dL (2.5-4.9); POTASSIUM 4.1 MEQ/L (3.7-5.4); SODIUM 138 MEQ/L (136-147); UREA NITROGEN (BUN) 26 mg/dL (9-23)
[2018-01-06 09:20] LABS: CREATININE 5.6 MG/DL (0.6-1.3)
[2018-01-07 03:46] VITALS: BP 133/74
[2018-01-07 06:06] LABS: HEMOGLOBIN 10.9 G/DL (11.9-15.5); MCH 28.7 PG (29.0-34.0); MCHC 30.3 G/DL (30.0-36.0); MCV 94.7 FL (83-99); PLATELET COUNT 256 K/uL (156-360); RBC DIS.WIDTH-CV 17.9 % (11.8-14.6); RBC DIS.WIDTH-SD 61.1 % (39-53); WHITE BLOOD COUNT 5.2 K/uL (4.1-10.2)
[2018-01-07 06:20] LABS: INTER. NORMALIZED RATIO 1.9
[2018-01-07 06:39] LABS: CHLORIDE 100 MEQ/L (99-109); CREATININE 5.5 MG/DL (0.6-1.3); GFR ESTIMATE (CALCULATED) 8 mL/min/; GLUCOSE 97 mg/dL (70-99); POTASSIUM 4.8 MEQ/L (3.7-5.4); SODIUM 137 MEQ/L (136-147); UREA NITROGEN (BUN) 24 mg/dL (9-23)
[2018-01-07 07:30] VITALS: BP 102/59
[2018-01-07] MEDS ORDERED: COUMADIN1 MG PO (11:48)
[2018-01-07] MEDS ORDERED: ONDANSETRON ODT4 MG PO (11:48)
[2018-01-07] MEDS ORDERED: METOCLOPRAMIDE10 MG PO (11:48)
[2018-01-07] MEDS ORDERED: PANTOPRAZOLE SO40 MG PO (11:48)
[2018-01-07] MEDS ORDERED: METRONIDAZOLE500 MG PO (11:48)
[2018-01-07] MEDS ORDERED: FLORASTOR250 MG PO (11:48)
== END 2018-01-07 17:24 | disposition home health service (06) | DRG 444 ==
LOC: EME 10:50 → 5EAST 15:18 → EDOF 15:18 → ENRESERV 15:19 → 5EAST 16:58
PROVIDERS: Emergency Medicine; Family Medicine; Internal Medicine
PROC: 5A1D70Z Performance of Urinary Filtration, Intermittent, Less than 6 Hours Per Day (ICD-10-PCS; principal; 2018-01-05)
DX: K80.66 Calculus of gallbladder and bile duct with acute and chronic cholecystitis without obstruction (principal); I48.0 Paroxysmal atrial fibrillation; I13.2 Hypertensive heart and chronic kidney disease with heart failure and with stage 5 chronic kidney disease, or end stage renal disease; I50.22 Chronic systolic (congestive) heart failure; E11.22 Type 2 diabetes mellitus with diabetic chronic kidney disease; N18.6 End stage renal disease; I95.3 Hypotension of hemodialysis; D63.1 Anemia in chronic kidney disease; E43 Unspecified severe protein-calorie malnutrition; Z68.1 Body mass index [BMI] 19.9 or less, adult; I48.92 Unspecified atrial flutter; I25.5 Ischemic cardiomyopathy; N25.81 Secondary hyperparathyroidism of renal origin; J44.9 Chronic obstructive pulmonary disease, unspecified; R18.8 Other ascites; E83.51 Hypocalcemia; I47.1 Supraventricular tachycardia; E87.2 Acidosis; E86.0 Dehydration; B19.20 Unspecified viral hepatitis C without hepatic coma; G47.33 Obstructive sleep apnea (adult) (pediatric); E78.5 Hyperlipidemia, unspecified; K21.9 Gastro-esophageal reflux disease without esophagitis; E89.0 Postprocedural hypothyroidism; G89.29 Other chronic pain; K57.30 Diverticulosis of large intestine without perforation or abscess without bleeding; M19.90 Unspecified osteoarthritis, unspecified site; I25.10 Atherosclerotic heart disease of native coronary artery without angina pectoris; I25.2 Old myocardial infarction; I44.0 Atrioventricular block, first degree; F17.200 Nicotine dependence, unspecified, uncomplicated; Z98.84 Bariatric surgery status; Z99.2 Dependence on renal dialysis; Z60.2 Problems related to living alone; Z79.02 Long term (current) use of antithrombotics/antiplatelets; Z86.711 Personal history of pulmonary embolism; Z86.718 Personal history of other venous thrombosis and embolism; Z86.73 Personal history of transient ischemic attack (TIA), and cerebral infarction without residual deficits
CPT/HCPCS: 74176; 76705; 80048; 80053; 80069; 81003; 82248; 83036; 83605; 83690; 85025; 85027; 85610; 87040; 87493; 93005; 94640; 94640 76; 94660; 99202; 99281; 99285; J0610; J0696; J0881; J1270; J1644; J2405; J2765; J7040; J7050; S0030

== ENCOUNTER 2018-01-09 06:04 | Inpatient (IN) | payer OTHER ==
[~2018-01-09] VITALS: Ht 160 cm; Wt 51.0 kg
[~2018-01-09 06:04] MED LIST changes: +ADVAIR 250/501 DISK IH; +CLOPIDOGREL75 MG PO; +FLORASTOR250 MG PO; +METOCLOPRAMIDE10 MG PO; +METRONIDAZOLE500 MG PO; +ONDANSETRON ODT4 MG PO; +PANTOPRAZOLE SO40 MG PO; +XIIDRA1 EACH BOTH EYES
[2018-01-09 07:47] LABS: BASOPHIL (%) 0.3 % (0-1); EOSINOPHIL (%) 0 % (0-5); HEMATOCRIT 33.9 % (36.0-46.0); HEMOGLOBIN 10.7 G/DL (11.9-15.5); IMMATURE GRANULOCYTE (%) 0.6 % (0.0-0.7); LYMPHOCYTE (%) 8.6 % (15-42); LYMPHOCYTE COUNT 0.6 K/uL (1.0-2.8); MCH 29.5 PG (29.0-34.0); MCHC 31.6 G/DL (30.0-36.0); MCV 93.4 FL (83-99); MONOCYTE (%) 5.7 % (3-12); MONOCYTE COUNT 0.4 K/uL (0-0.8); NEUTROPHIL (%) 84.8 % (45-76); PLATELET COUNT 309 K/uL (156-360); RBC DIS.WIDTH-CV 18.3 % (11.8-14.6); RBC DIS.WIDTH-SD 60.7 % (39-53); RED BLOOD COUNT 3.63 M/uL (3.80-5.20)
[2018-01-09 07:57] LABS: PTT 44.5 SEC (25-37)
[2018-01-09 08:02] LABS: INTER. NORMALIZED RATIO 3.9
[2018-01-09 08:15] LABS: TROP-I INTERPRETATION POSITIVE; TROPONIN-I 1.57 ng/mL (0.0-0.30)
[2018-01-09 08:22] LABS: CHLORIDE 100 MEQ/L (99-109); GLUCOSE 79 mg/dL (70-99); POTASSIUM 4.9 MEQ/L (3.7-5.4); SODIUM 138 MEQ/L (136-147); UREA NITROGEN (BUN) 34 mg/dL (9-23)
[2018-01-09 08:24] LABS: CREATININE 7.5 MG/DL (0.6-1.3); GFR ESTIMATE (CALCULATED) 6 mL/min/
[2018-01-09] MEDS ORDERED: LEVOTHYROXINE50 MCG PO (11:32)
[2018-01-09 12:38] LABS: ALBUMIN 1.8 G/DL (3.2-4.8); ALKALINE PHOSPHATASE 129 IU/L (3-129); DIRECT BILIRUBIN 0.1 mg/dL (0.0-0.3); TOTAL BILIRUBIN 0.4 MG/DL (0.0-1.0); TOTAL PROTEIN 5.6 G/DL (6.4-8.3)
[2018-01-09 12:39] LABS: ALT (GPT) 17 IU/L (3-49); AST (GOT) 68 IU/L (2-34)
[2018-01-09 14:40] LABS: TROP-I INTERPRETATION POSITIVE
[2018-01-09 14:44] LABS: TROPONIN-I 1.71 ng/mL (0.0-0.30)
[2018-01-09 15:45] VITALS: BP 120/68
[2018-01-09 20:15] VITALS: BP 115/57
[2018-01-09 20:22] LABS: TROP-I INTERPRETATION POSITIVE; TROPONIN-I 2.73 ng/mL (0.0-0.30)
[2018-01-09 23:55] VITALS: BP 114/57
[2018-01-10 04:07] VITALS: BP 125/56
[2018-01-10 05:52] LABS: HEMATOCRIT 32.8 % (36.0-46.0); HEMOGLOBIN 10.1 G/DL (11.9-15.5); MCH 29.1 PG (29.0-34.0); MCHC 30.8 G/DL (30.0-36.0); MCV 94.5 FL (83-99); NRBC (%) 0.3 /100 WBC (0-0); PLATELET COUNT 284 K/uL (156-360); RBC DIS.WIDTH-CV 18.3 % (11.8-14.6); RBC DIS.WIDTH-SD 61.1 % (39-53); RED BLOOD COUNT 3.47 M/uL (3.80-5.20); WHITE BLOOD COUNT 5.8 K/uL (4.1-10.2)
[2018-01-10 06:45] LABS: ALBUMIN 1.7 G/DL (3.2-4.8); CHLORIDE 99 MEQ/L (99-109); CREATININE 7.9 MG/DL (0.6-1.3); GFR ESTIMATE (CALCULATED) 5 mL/min/; GLUCOSE 70 mg/dL (70-99); POTASSIUM 4.6 MEQ/L (3.7-5.4); SODIUM 136 MEQ/L (136-147); UREA NITROGEN (BUN) 35 mg/dL (9-23)
[2018-01-10 06:46] LABS: INTER. NORMALIZED RATIO 2.1; PHOSPHORUS 7.1 mg/dL (2.5-4.9)
[2018-01-10 07:33] VITALS: BP 120/69
[2018-01-10 08:28] LABS: THYROTROPIN (TSH) 8.5 MIU/L (0.4-5.5)
[2018-01-10 15:05] VITALS: BP 125/56
[2018-01-10 20:45] VITALS: BP 123/56
[2018-01-11 00:58] VITALS: BP 95/47
[2018-01-11 03:10] VITALS: BP 102/51
[2018-01-11 05:36] LABS: INTER. NORMALIZED RATIO 1.3
[2018-01-11 08:32] VITALS: BP 133/70
[2018-01-11 10:58] LABS: FREE T3 1.5 pg/mL (2.3-4.2)
[2018-01-11 12:07] VITALS: BP 182/78
[2018-01-11 19:45] VITALS: BP 185/77
[2018-01-12] VITALS (7 sets, daily range): BP systolic 141–173; BP diastolic 64–79
[2018-01-12 00:55] LABS: INTER. NORMALIZED RATIO 1.4
[2018-01-12 00:58] LABS: PTT 84.4 SEC (25-37)
[2018-01-13 05:48] VITALS: BP 124/60
[2018-01-13 06:19] LABS: CHLORIDE 101 MEQ/L (99-109); GLUCOSE 68 mg/dL (70-99); POTASSIUM 4.6 MEQ/L (3.7-5.4); SODIUM 135 MEQ/L (136-147); UREA NITROGEN (BUN) 20 mg/dL (9-23)
[2018-01-13 06:24] LABS: HEMATOCRIT 30.8 % (36.0-46.0); HEMOGLOBIN 9.4 G/DL (11.9-15.5); MCH 28.9 PG (29.0-34.0); MCHC 30.5 G/DL (30.0-36.0); MCV 94.8 FL (83-99); NRBC (%) 0.4 /100 WBC (0-0); RBC DIS.WIDTH-CV 18.3 % (11.8-14.6); RBC DIS.WIDTH-SD 59.7 % (39-53); RED BLOOD COUNT 3.25 M/uL (3.80-5.20); WHITE BLOOD COUNT 4.6 K/uL (4.1-10.2)
[2018-01-13 06:33] LABS: CREATININE 6.4 MG/DL (0.6-1.3); GFR ESTIMATE (CALCULATED) 7 mL/min/; PHOSPHORUS 4.6 mg/dL (2.5-4.9)
[2018-01-13 06:34] LABS: ALBUMIN < 1.5 G/DL (3.2-4.8)
[2018-01-13 06:52] LABS: PLAT.SUFFICIENCY ADEQUATE
[2018-01-13 06:53] LABS: PLATELET COUNT 186 K/uL (156-360)
[2018-01-13 08:24] VITALS: BP 111/56
[2018-01-13 13:30] VITALS: BP 141/78
[2018-01-13 14:27] LABS: C DIFF TOXIN ND (NEGATIVE)
[2018-01-13 15:46] VITALS: BP 150/63
[2018-01-13 20:40] VITALS: BP 152/66
[2018-01-13 23:30] VITALS: BP 142/64
[2018-01-14 04:39] VITALS: BP 123/61
[2018-01-14 05:14] LABS: INTER. NORMALIZED RATIO 2.4
[2018-01-14 07:30] VITALS: BP 149/66
[2018-01-14 12:19] VITALS: BP 111/55
[2018-01-14 16:48] VITALS: BP 132/62
[2018-01-14 20:04] VITALS: BP 144/65
[2018-01-14 23:46] VITALS: BP 122/59
[2018-01-15] VITALS (7 sets, daily range): BP systolic 128–168; BP diastolic 50–76
[2018-01-15 06:47] LABS: INTER. NORMALIZED RATIO 2.6
[2018-01-15 07:19] LABS: ALBUMIN < 1.5 G/DL (3.2-4.8); CHLORIDE 101 MEQ/L (99-109); CREATININE 5.3 MG/DL (0.6-1.3); GFR ESTIMATE (CALCULATED) 8 mL/min/; GLUCOSE 67 mg/dL (70-99); PHOSPHORUS 3.1 mg/dL (2.5-4.9); SODIUM 136 MEQ/L (136-147); UREA NITROGEN (BUN) 16 mg/dL (9-23)
[2018-01-16 00:06] VITALS: BP 138/63
[2018-01-16 03:51] VITALS: BP 148/69
[2018-01-16 06:47] LABS: INTER. NORMALIZED RATIO 2.7
[2018-01-16 07:46] LABS: ALBUMIN < 1.5 G/DL (3.2-4.8); CHLORIDE 99 MEQ/L (99-109); PHOSPHORUS 3.3 mg/dL (2.5-4.9); SODIUM 133 MEQ/L (136-147); UREA NITROGEN (BUN) 21 mg/dL (9-23)
[2018-01-16 07:49] LABS: GFR ESTIMATE (CALCULATED) 6 mL/min/; GLUCOSE 89 mg/dL (70-99)
[2018-01-16 08:28] LABS: INTACT PARATHYROID HORMONE 302 pg/mL (10-69)
[2018-01-16 09:16] LABS: HEMATOCRIT 30.1 % (36.0-46.0); HEMOGLOBIN 9.2 G/DL (11.9-15.5); MCHC 30.6 G/DL (30.0-36.0); PLATELET COUNT 175 K/uL (156-360); RBC DIS.WIDTH-CV 18.6 % (11.8-14.6); RBC DIS.WIDTH-SD 61.5 % (39-53); RED BLOOD COUNT 3.17 M/uL (3.80-5.20); WHITE BLOOD COUNT 4.4 K/uL (4.1-10.2)
[2018-01-16] MEDS ORDERED: COUMADIN1 MG PO (13:36)
[2018-01-16] MEDS ORDERED: PACERONE200 MG PO (13:39)
[2018-01-16] MEDS ORDERED: CARVEDILOL6.25 MG PO (13:39)
[2018-01-16] MEDS ORDERED: ASPIR-LOW81 MG PO (13:39)
[2018-01-16] MEDS ORDERED: APRESOLINE10 MG PO (13:39)
[2018-01-16] MEDS ORDERED: PRAVASTATIN SOD40 MG PO (13:39)
[2018-01-16] MEDS ORDERED: LEVOTHYROXINE75 MCG PO (13:40)
[2018-01-16] MEDS ORDERED: CALCITRIOL0.25 MCG PO (13:40)
[2018-01-16] MEDS ORDERED: LOPERAMIDE2 MG PO (13:40)
[2018-01-16] MEDS ORDERED: ARANESP40 MCG/0.4 IV (13:42)
[2018-01-16 15:50] VITALS: BP 129/62
== END 2018-01-16 16:25 | DRG 280 ==
LOC: EME → EDBD 06:04 → EDOF 11:14 → 4EAST 11:14 → 3EAST 11:14 → ENRESERV 11:15 → EDOF 11:41 → ENRESERV 13:51 → 4EAST 15:07 → ENRESERV 01-14 20:33 → 3EAST 01-15 00:39
PROVIDERS: Emergency Medicine; Family Medicine; Internal Medicine; Internal Medicine Nephrology
PROC: B2151ZZ Fluoroscopy of Left Heart using Low Osmolar Contrast (ICD-10-PCS; principal; 2018-01-09)
PROC: 4A023N7 Measurement of Cardiac Sampling and Pressure, Left Heart, Percutaneous Approach (ICD-10-PCS; principal; 2018-01-09)
PROC: B2111ZZ Fluoroscopy of Multiple Coronary Arteries using Low Osmolar Contrast (ICD-10-PCS; principal; 2018-01-09)
PROC: 5A1D70Z Performance of Urinary Filtration, Intermittent, Less than 6 Hours Per Day (ICD-10-PCS; 2018-01-10)
DX: I21.4 Non-ST elevation (NSTEMI) myocardial infarction (principal); N18.6 End stage renal disease; I13.2 Hypertensive heart and chronic kidney disease with heart failure and with stage 5 chronic kidney disease, or end stage renal disease; N25.81 Secondary hyperparathyroidism of renal origin; I47.1 Supraventricular tachycardia; Z68.1 Body mass index [BMI] 19.9 or less, adult; I50.22 Chronic systolic (congestive) heart failure; I42.9 Cardiomyopathy, unspecified; E86.0 Dehydration; E11.22 Type 2 diabetes mellitus with diabetic chronic kidney disease; E83.51 Hypocalcemia; G89.29 Other chronic pain; H91.90 Unspecified hearing loss, unspecified ear; I44.7 Left bundle-branch block, unspecified; I48.0 Paroxysmal atrial fibrillation; R63.0 Anorexia; J43.9 Emphysema, unspecified; E78.5 Hyperlipidemia, unspecified; E89.0 Postprocedural hypothyroidism; I95.3 Hypotension of hemodialysis; I25.10 Atherosclerotic heart disease of native coronary artery without angina pectoris; K21.9 Gastro-esophageal reflux disease without esophagitis; M19.90 Unspecified osteoarthritis, unspecified site; F17.200 Nicotine dependence, unspecified, uncomplicated; G47.30 Sleep apnea, unspecified; D63.1 Anemia in chronic kidney disease; Z86.718 Personal history of other venous thrombosis and embolism; Z86.73 Personal history of transient ischemic attack (TIA), and cerebral infarction without residual deficits; Z91.14 Patient's other noncompliance with medication regimen; Z99.2 Dependence on renal dialysis; Z88.8 Allergy status to other drugs, medicaments and biological substances; Z88.3 Allergy status to other anti-infective agents; Z98.84 Bariatric surgery status; Z99.81 Dependence on supplemental oxygen; Z79.899 Other long term (current) drug therapy; Z91.09 Other allergy status, other than to drugs and biological substances; Z86.711 Personal history of pulmonary embolism; Z79.01 Long term (current) use of anticoagulants
CPT/HCPCS: 71045; 80048; 80069; 80076; 82330; 82607; 83970; 84439; 84443; 84480 90; 84481; 84484; 85025; 85027; 85610; 85730; 86850; 86900; 86901; 87493; 87641; 93005; 94640; 94640 76; 94660; 94799; 99281; 99285; A6214; C1769; C1887; J0881; J1160; J1644; J2250; J2405; J3010; J3430; J7040; J7050

== ENCOUNTER 2018-02-03 07:47 | Inpatient (IN) | payer OTHER ==
[~2018-02-03] VITALS: Ht 157.5 cm; Wt 62.4 kg
[~2018-02-03 07:47] MED LIST changes: +APRESOLINE10 MG PO; +ARANESP40 MCG/0.4 IV; +LEVOTHYROXINE75 MCG PO; +LOPERAMIDE2 MG PO; +PACERONE200 MG PO
[2018-02-03 09:05] LABS: BASOPHIL (%) 0.5 % (0-1); EOSINOPHIL (%) 0.7 % (0-5); IMMATURE GRANULOCYTE (%) 0.2 % (0.0-0.7); LYMPHOCYTE (%) 10.3 % (15-42); LYMPHOCYTE COUNT 0.6 K/uL (1.0-2.8); MCH 29.6 PG (29.0-34.0); MCHC 31.9 G/DL (30.0-36.0); MCV 92.8 FL (83-99); MONOCYTE (%) 7.8 % (3-12); MONOCYTE COUNT 0.5 K/uL (0-0.8); NEUTROPHIL (%) 80.5 % (45-76); NEUTROPHIL COUNT 4.9 K/uL (1.8-6.4); RBC DIS.WIDTH-CV 20.2 % (11.8-14.6); RBC DIS.WIDTH-SD 66.4 % (39-53)
[2018-02-03 09:07] LABS: HEMOGLOBIN 11.5 G/DL (11.9-15.5); PLATELET COUNT 236 K/uL (156-360); RED BLOOD COUNT 3.88 M/uL (3.80-5.20)
[2018-02-03 09:11] LABS: CHLORIDE 100 mEq/L (99-109); POTASSIUM 3.5 mEq/L (3.7-5.4); SODIUM 140 mEq/L (136-147)
[2018-02-03 09:13] LABS: GLUCOSE 54 mg/dL (70-99)
[2018-02-03 09:17] LABS: CREATININE 7.6 mg/dL (0.6-1.3); GFR ESTIMATE (CALCULATED) 6 mL/min/; UREA NITROGEN (BUN) 45 mg/dL (9-23)
[2018-02-03] MEDS ORDERED: BREO ELLIPTA I1 EACH IH (14:04)
[2018-02-03] MEDS ORDERED: LIPITOR10 MG PO (14:04)
[2018-02-03] MEDS ORDERED: COUMADIN1 MG PO (14:07)
[2018-02-03 14:10] VITALS: BP 142/63
[2018-02-03] MEDS ORDERED: FLORASTOR250 MG PO (14:13)
[2018-02-03] MEDS ORDERED: ANTI-DIARRHEA2 MG PO (14:14)
[2018-02-03] MEDS ORDERED: NICODERM CQ1 EAC2 TD (14:15)
[2018-02-03] MEDS ORDERED: ROXICODONE5 MG PO (14:17)
[2018-02-03 16:50] VITALS: BP 151/67
[2018-02-03 20:10] VITALS: BP 126/60
[2018-02-04] VITALS (7 sets, daily range): BP systolic 103–139; BP diastolic 53–63
[2018-02-04 06:02] LABS: HEMATOCRIT 32.2 % (36.0-46.0); HEMOGLOBIN 10.1 G/DL (11.9-15.5); MCH 28.8 PG (29.0-34.0); MCHC 31.4 G/DL (30.0-36.0); MCV 91.7 FL (83-99); PLATELET COUNT 186 K/uL (156-360); RBC DIS.WIDTH-CV 20.1 % (11.8-14.6); RED BLOOD COUNT 3.51 M/uL (3.80-5.20); WHITE BLOOD COUNT 5.8 K/uL (4.1-10.2)
[2018-02-04 06:06] LABS: PTT 38.7 SEC (25-37)
[2018-02-04 06:27] LABS: CHLORIDE 105 MEQ/L (99-109); CREATININE 7.8 MG/DL (0.6-1.3); GFR ESTIMATE (CALCULATED) 5 mL/min/; GLUCOSE 67 mg/dL (70-99); POTASSIUM 4.2 MEQ/L (3.7-5.4); SODIUM 144 MEQ/L (136-147); UREA NITROGEN (BUN) 54 mg/dL (9-23)
[2018-02-04 06:37] LABS: VANCOMYCIN, TROUGH 10.7 MCG/ML (10-20)
[2018-02-04 08:26] LABS: ALBUMIN < 1.5 G/DL (3.2-4.8)
[2018-02-05 04:26] VITALS: BP 127/59
[2018-02-05 06:54] LABS: HEMATOCRIT 33.3 % (36.0-46.0); HEMOGLOBIN 10.3 G/DL (11.9-15.5); MCH 28.5 PG (29.0-34.0); MCHC 30.9 G/DL (30.0-36.0); MCV 92.2 FL (83-99); PLATELET COUNT 161 K/uL (156-360); RBC DIS.WIDTH-CV 20.3 % (11.8-14.6); RBC DIS.WIDTH-SD 65.9 % (39-53); RED BLOOD COUNT 3.61 M/uL (3.80-5.20); WHITE BLOOD COUNT 5.4 K/uL (4.1-10.2)
[2018-02-05 07:27] LABS: CHLORIDE 104 MEQ/L (99-109); CREATININE 8.3 MG/DL (0.6-1.3); GFR ESTIMATE (CALCULATED) 5 mL/min/; GLUCOSE 76 mg/dL (70-99); POTASSIUM 4.6 MEQ/L (3.7-5.4); SODIUM 140 MEQ/L (136-147); UREA NITROGEN (BUN) 57 mg/dL (9-23)
[2018-02-05 07:29] LABS: VANCOMYCIN, TROUGH 19.2 MCG/ML (10-20)
[2018-02-05 08:04] VITALS: BP 144/66
[2018-02-05 12:03] VITALS: BP 126/60
[2018-02-05 15:40] VITALS: BP 141/64
[2018-02-06 00:02] VITALS: BP 131/59
[2018-02-06 06:16] LABS: CHLORIDE 103 MEQ/L (99-109); CREATININE 8.8 MG/DL (0.6-1.3); GFR ESTIMATE (CALCULATED) 5 mL/min/; GLUCOSE 62 mg/dL (70-99); POTASSIUM 4.1 MEQ/L (3.7-5.4); SODIUM 139 MEQ/L (136-147); UREA NITROGEN (BUN) 58 mg/dL (9-23)
[2018-02-06 06:17] LABS: VANCOMYCIN, TROUGH 20.4 MCG/ML (10-20)
[2018-02-06 07:44] VITALS: BP 130/60
[2018-02-06 10:03] LABS: BASOPHIL (%) 0.4 % (0-1); EOSINOPHIL (%) 0.7 % (0-5); HEMATOCRIT 28.8 % (36.0-46.0); IMMATURE GRANULOCYTE (%) 0.4 % (0.0-0.7); LYMPHOCYTE (%) 12.5 % (15-42); LYMPHOCYTE COUNT 0.6 K/uL (1.0-2.8); MCH 28.9 PG (29.0-34.0); MCHC 31.3 G/DL (30.0-36.0); MCV 92.6 FL (83-99); MONOCYTE (%) 7.9 % (3-12); MONOCYTE COUNT 0.4 K/uL (0-0.8); NEUTROPHIL (%) 78.1 % (45-76); NEUTROPHIL COUNT 3.6 K/uL (1.8-6.4); PLATELET COUNT 167 K/uL (156-360); RBC DIS.WIDTH-CV 20.2 % (11.8-14.6); RBC DIS.WIDTH-SD 66.4 % (39-53); RED BLOOD COUNT 3.11 M/uL (3.80-5.20); WHITE BLOOD COUNT 4.6 K/uL (4.1-10.2)
[2018-02-06 15:28] VITALS: BP 139/67
[2018-02-07] VITALS: BP 143/66
[2018-02-07 06:49] VITALS: BP 141/63
[2018-02-07 13:36] LABS: BASOPHIL (%) 0.9 % (0-1); BASOPHIL COUNT 0.1 K/uL (0-0.1); EOSINOPHIL (%) 0.6 % (0-5); HEMATOCRIT 33.4 % (36.0-46.0); HEMOGLOBIN 10.3 G/DL (11.9-15.5); IMMATURE GRANULOCYTE (%) 0.6 % (0.0-0.7); LYMPHOCYTE (%) 12.9 % (15-42); LYMPHOCYTE COUNT 0.7 K/uL (1.0-2.8); MCH 28.4 PG (29.0-34.0); MCHC 30.8 G/DL (30.0-36.0); MONOCYTE (%) 8.3 % (3-12); MONOCYTE COUNT 0.5 K/uL (0-0.8); NEUTROPHIL (%) 76.7 % (45-76); NEUTROPHIL COUNT 4.2 K/uL (1.8-6.4); PLATELET COUNT 201 K/uL (156-360); RBC DIS.WIDTH-CV 19.8 % (11.8-14.6); RBC DIS.WIDTH-SD 65.6 % (39-53); RED BLOOD COUNT 3.63 M/uL (3.80-5.20); WHITE BLOOD COUNT 5.4 K/uL (4.1-10.2)
[2018-02-07 13:42] LABS: ALBUMIN < 1.5 G/DL (3.2-4.8); CHLORIDE 105 MEQ/L (99-109); CREATININE 8.9 MG/DL (0.6-1.3); GFR ESTIMATE (CALCULATED) 5 mL/min/; GLUCOSE 63 mg/dL (70-99); POTASSIUM 3.9 MEQ/L (3.7-5.4); SODIUM 142 MEQ/L (136-147); UREA NITROGEN (BUN) 59 mg/dL (9-23)
[2018-02-07 13:49] LABS: PHOSPHORUS 6.3 mg/dL (2.5-4.9)
[2018-02-07 17:32] VITALS: BP 90/543
[2018-02-07 20:43] VITALS: BP 88/37
[2018-02-08 00:51] VITALS: BP 87/37
[2018-02-08 07:28] VITALS: BP 95/43
[2018-02-08 07:29] LABS: BASOPHIL (%) 0.5 % (0-1); EOSINOPHIL (%) 0.3 % (0-5); HEMATOCRIT 35.3 % (36.0-46.0); HEMOGLOBIN 10.6 G/DL (11.9-15.5); IMMATURE GRANULOCYTE (%) 0.6 % (0.0-0.7); LYMPHOCYTE COUNT 0.8 K/uL (1.0-2.8); MCH 28.4 PG (29.0-34.0); MCV 94.6 FL (83-99); MONOCYTE (%) 11.5 % (3-12); MONOCYTE COUNT 0.7 K/uL (0-0.8); NEUTROPHIL (%) 75.1 % (45-76); NEUTROPHIL COUNT 4.8 K/uL (1.8-6.4); PLATELET COUNT 152 K/uL (156-360); RBC DIS.WIDTH-CV 19.9 % (11.8-14.6); RBC DIS.WIDTH-SD 68.3 % (39-53); RED BLOOD COUNT 3.73 M/uL (3.80-5.20); WHITE BLOOD COUNT 6.4 K/uL (4.1-10.2)
[2018-02-08 15:29] LABS: INTER. NORMALIZED RATIO 1.6
[2018-02-08 15:32] VITALS: BP 108/47
[2018-02-08 20:08] VITALS: BP 92/39
[2018-02-09] VITALS (11 sets, daily range): BP systolic 92–156; BP diastolic 37–86
[2018-02-09 07:17] LABS: INTER. NORMALIZED RATIO 1.5
[2018-02-09 07:24] LABS: HEMATOCRIT 25.9 % (36.0-46.0); MCH 28.3 PG (29.0-34.0); MCHC 30.5 G/DL (30.0-36.0); MCV 92.8 FL (83-99); PLATELET COUNT 131 K/uL (156-360); RBC DIS.WIDTH-CV 19.5 % (11.8-14.6); RBC DIS.WIDTH-SD 65.9 % (39-53); WHITE BLOOD COUNT 4.4 K/uL (4.1-10.2)
[2018-02-09 07:25] LABS: HEMOGLOBIN 7.9 G/DL (11.9-15.5); RED BLOOD COUNT 2.79 M/uL (3.80-5.20)
[2018-02-09 07:53] LABS: CHLORIDE 105 MEQ/L (99-109); CREATININE 6.7 MG/DL (0.6-1.3); GFR ESTIMATE (CALCULATED) 6 mL/min/; GLUCOSE 85 mg/dL (70-99); SODIUM 141 MEQ/L (136-147); UREA NITROGEN (BUN) 34 mg/dL (9-23); VANCOMYCIN, TROUGH 21.6 MCG/ML (10-20)
[2018-02-09 16:08] LABS: HEMATOCRIT 24.9 % (36.0-46.0); HEMOGLOBIN 7.7 G/DL (11.9-15.5)
[2018-02-10 06:45] LABS: INTER. NORMALIZED RATIO 1.5
[2018-02-10 07:10] LABS: CHLORIDE 107 MEQ/L (99-109); CREATININE 6.4 MG/DL (0.6-1.3); GFR ESTIMATE (CALCULATED) 7 mL/min/; POTASSIUM 3.9 MEQ/L (3.7-5.4); SODIUM 142 MEQ/L (136-147); UREA NITROGEN (BUN) 36 mg/dL (9-23); VANCOMYCIN, TROUGH 20.7 MCG/ML (10-20)
[2018-02-10 07:14] LABS: GLUCOSE 116 mg/dL (70-99)
[2018-02-10 08:00] VITALS: BP 127/79
[2018-02-10 08:06] VITALS: BP 108/53
[2018-02-10 08:17] LABS: MCH 27.6 PG (29.0-34.0); MCHC 30.9 G/DL (30.0-36.0); PLATELET COUNT 137 K/uL (156-360); RBC DIS.WIDTH-CV 19.6 % (11.8-14.6); RBC DIS.WIDTH-SD 62.4 % (39-53); WHITE BLOOD COUNT 4.9 K/uL (4.1-10.2)
[2018-02-10 08:18] LABS: HEMOGLOBIN 10.5 G/DL (11.9-15.5); MCV 89.5 FL (83-99)
[2018-02-10 12:12] VITALS: BP 115/46
[2018-02-10 19:09] VITALS: BP 90/50
[2018-02-10 23:08] VITALS: BP 124/60
[2018-02-11 03:41] VITALS: BP 103/51
[2018-02-11 06:20] LABS: INTER. NORMALIZED RATIO 1.6
[2018-02-11 07:30] VITALS: BP 155/100
[2018-02-11 12:14] VITALS: BP 106/47
[2018-02-11 16:00] VITALS: BP 118/78
[2018-02-11 19:15] VITALS: BP 105/48
[2018-02-11 23:20] VITALS: BP 99/48
[2018-02-12 03:57] VITALS: BP 99/40
[2018-02-12 06:41] LABS: HEMOGLOBIN 10.3 G/DL (11.9-15.5); MCH 28.1 PG (29.0-34.0); MCHC 31.2 G/DL (30.0-36.0); MCV 90.2 FL (83-99); PLATELET COUNT 150 K/uL (156-360); RBC DIS.WIDTH-CV 19.4 % (11.8-14.6); RED BLOOD COUNT 3.66 M/uL (3.80-5.20); WHITE BLOOD COUNT 4.9 K/uL (4.1-10.2)
[2018-02-12 06:56] LABS: INTER. NORMALIZED RATIO 2.1
[2018-02-12 08:13] VITALS: BP 101/44
[2018-02-12 11:24] VITALS: BP 115/58
[2018-02-12 16:14] VITALS: BP 160/54
[2018-02-13 06:09] VITALS: BP 145/92
[2018-02-13 06:35] LABS: INTER. NORMALIZED RATIO 2.6
[2018-02-13 07:38] LABS: ALBUMIN < 1.5 G/DL (3.2-4.8); CHLORIDE 107 MEQ/L (99-109); CREATININE 5.5 MG/DL (0.6-1.3); GFR ESTIMATE (CALCULATED) 8 mL/min/; GLUCOSE 71 mg/dL (70-99); PHOSPHORUS 3.8 mg/dL (2.5-4.9); POTASSIUM 4.6 MEQ/L (3.7-5.4); SODIUM 142 MEQ/L (136-147); UREA NITROGEN (BUN) 26 mg/dL (9-23); VANCOMYCIN, TROUGH 23.8 MCG/ML (10-20)
[2018-02-13 08:16] LABS: BASOPHIL (%) 0.9 % (0-1); EOSINOPHIL (%) 1.9 % (0-5); EOSINOPHIL COUNT 0.1 K/uL (0-0.3); HEMATOCRIT 31.5 % (36.0-46.0); HEMOGLOBIN 9.7 G/DL (11.9-15.5); IMMATURE GRANULOCYTE (%) 0.5 % (0.0-0.7); LYMPHOCYTE (%) 14.6 % (15-42); LYMPHOCYTE COUNT 0.6 K/uL (1.0-2.8); MCHC 30.8 G/DL (30.0-36.0); MCV 90.8 FL (83-99); MONOCYTE (%) 5.3 % (3-12); MONOCYTE COUNT 0.2 K/uL (0-0.8); NEUTROPHIL (%) 76.8 % (45-76); NEUTROPHIL COUNT 3.3 K/uL (1.8-6.4); PLATELET COUNT 157 K/uL (156-360); RBC DIS.WIDTH-SD 61.2 % (39-53); RED BLOOD COUNT 3.47 M/uL (3.80-5.20); WHITE BLOOD COUNT 4.3 K/uL (4.1-10.2)
[2018-02-13 13:11] VITALS: BP 168/82
[2018-02-13 15:00] VITALS: BP 90/52
[2018-02-13 17:30] VITALS: BP 87/50
[2018-02-13 20:17] VITALS: BP 92/56
[2018-02-13 23:46] VITALS: BP 94/52
[2018-02-14] VITALS (21 sets, daily range): BP systolic 64–166; BP diastolic 38–114
[2018-02-14 07:03] LABS: INTER. NORMALIZED RATIO 2.5
[2018-02-14 07:10] LABS: HEMATOCRIT 24.2 % (36.0-46.0); MCH 28.5 PG (29.0-34.0); PLATELET COUNT 131 K/uL (156-360); WHITE BLOOD COUNT 3.9 K/uL (4.1-10.2)
[2018-02-14 07:13] LABS: HEMOGLOBIN 7.5 G/DL (11.9-15.5); RED BLOOD COUNT 2.63 M/uL (3.80-5.20)
[2018-02-14 07:43] LABS: CHLORIDE 108 MEQ/L (99-109); GFR ESTIMATE (CALCULATED) 11 mL/min/; GLUCOSE 68 mg/dL (70-99); POTASSIUM 3.8 MEQ/L (3.7-5.4); SODIUM 145 MEQ/L (136-147); UREA NITROGEN (BUN) 17 mg/dL (9-23)
[2018-02-14 07:47] LABS: CREATININE 4.3 MG/DL (0.6-1.3)
[2018-02-14 17:08] LABS: CARBOXY HGB 0 % (0-5); COMMENTS - BLOOD GASES A+C+; DEVICE VENT; FI02 100 %; MECHANICAL RATE 16 resp/min; METHEMOGLOBIN 0 % (0-1.5); MODE AC; PCO2 29 mm Hg (35-45); PEEP 8 CM/H20; PO2 552 mm Hg (80-100); SITE LR; TIDAL VOLUME 400 ML; TOTAL RESP RATE 19 resp/min; pH 7.42 (7.35-7.45)
[2018-02-14 17:09] LABS: BASE EXCESS -5.1 mEq/L (-3 to +3); BICARBONATE 18.8 mEq/L (22-26)
[2018-02-14 17:21] LABS: INTER. NORMALIZED RATIO 2.8
[2018-02-14 17:24] LABS: PTT 51.5 SEC (25-37)
[2018-02-14 17:44] LABS: CHLORIDE 111 MEQ/L (99-109); CREATININE 4.3 MG/DL (0.6-1.3); GFR ESTIMATE (CALCULATED) 11 mL/min/; POTASSIUM 3.9 MEQ/L (3.7-5.4); SODIUM 142 MEQ/L (136-147); UREA NITROGEN (BUN) 17 mg/dL (9-23)
[2018-02-14 17:45] LABS: GLUCOSE 166 mg/dL (70-99)
[2018-02-14 17:47] LABS: BASOPHIL (%) 0.5 % (0-1); EOSINOPHIL (%) 0.7 % (0-5); HEMATOCRIT 20.9 % (36.0-46.0); HEMOGLOBIN 6.6 G/DL (11.9-15.5); IMMATURE GRANULOCYTE (%) 0.7 % (0.0-0.7); LYMPHOCYTE (%) 20.7 % (15-42); LYMPHOCYTE COUNT 0.9 K/uL (1.0-2.8); MCH 28.9 PG (29.0-34.0); MCHC 31.6 G/DL (30.0-36.0); MCV 91.7 FL (83-99); MONOCYTE (%) 3.4 % (3-12); MONOCYTE COUNT 0.1 K/uL (0-0.8); PLATELET COUNT 145 K/uL (156-360); RBC DIS.WIDTH-CV 18.1 % (11.8-14.6); RBC DIS.WIDTH-SD 60.4 % (39-53); RED BLOOD COUNT 2.28 M/uL (3.80-5.20); WHITE BLOOD COUNT 4.1 K/uL (4.1-10.2)
[2018-02-14 17:48] LABS: PHOSPHORUS 3.8 mg/dL (2.5-4.9)
[2018-02-14 20:55] LABS: BASOPHIL (%) 0.2 % (0-1); EOSINOPHIL (%) 0.1 % (0-5); HEMATOCRIT 37.4 % (36.0-46.0); HEMOGLOBIN 12.3 G/DL (11.9-15.5); IMMATURE GRANULOCYTE (%) 0.4 % (0.0-0.7); LYMPHOCYTE COUNT 0.5 K/uL (1.0-2.8); MCH 28.4 PG (29.0-34.0); MCHC 32.9 G/DL (30.0-36.0); MCV 86.4 FL (83-99); MONOCYTE (%) 3.1 % (3-12); MONOCYTE COUNT 0.3 K/uL (0-0.8); NEUTROPHIL (%) 90.2 % (45-76); NEUTROPHIL COUNT 7.2 K/uL (1.8-6.4); PLATELET COUNT 146 K/uL (156-360); RBC DIS.WIDTH-CV 16.9 % (11.8-14.6); RBC DIS.WIDTH-SD 51.5 % (39-53); RED BLOOD COUNT 4.33 M/uL (3.80-5.20)
[2018-02-15] VITALS (8 sets, daily range): BP systolic 00–128; BP diastolic 53–115
[2018-02-15 05:36] LABS: HEMATOCRIT 33.7 % (36.0-46.0); HEMOGLOBIN 11.5 G/DL (11.9-15.5); MCH 29.1 PG (29.0-34.0); MCHC 34.1 G/DL (30.0-36.0); MCV 85.3 FL (83-99); PLATELET COUNT 124 K/uL (156-360); RBC DIS.WIDTH-CV 17.3 % (11.8-14.6); RBC DIS.WIDTH-SD 51.5 % (39-53); RED BLOOD COUNT 3.95 M/uL (3.80-5.20); WHITE BLOOD COUNT 9.5 K/uL (4.1-10.2)
[2018-02-15 05:52] LABS: INTER. NORMALIZED RATIO 2.2
[2018-02-15 06:42] LABS: CHLORIDE 109 MEQ/L (99-109); CREATININE 4.4 MG/DL (0.6-1.3); GFR ESTIMATE (CALCULATED) 10 mL/min/; POTASSIUM 3.4 MEQ/L (3.7-5.4); SODIUM 143 MEQ/L (136-147); UREA NITROGEN (BUN) 18 mg/dL (9-23); VANCOMYCIN, TROUGH 16.3 MCG/ML (10-20)
[2018-02-15 06:48] LABS: GLUCOSE 76 mg/dL (70-99)
== END 2018-02-15 21:22 | disposition hospice, home (50) | DRG 252 ==
LOC: EME 07:47 → 2EAST 11:42 → EDOF 11:42 → 4WEST 11:42 → ENRESERV 11:43 → 2EAST 14:08 → ENRESERV 02-14 16:31 → 4WEST 02-14 16:32
PROVIDERS: Emergency Medicine; Hospitalist; Internal Medicine; Internal Medicine Nephrology; Specialist; Surgery
PROC: 5A1D70Z Performance of Urinary Filtration, Intermittent, Less than 6 Hours Per Day (ICD-10-PCS; principal; 2018-02-06)
PROC: 5A1935Z Respiratory Ventilation, Less than 24 Consecutive Hours (ICD-10-PCS; principal; 2018-02-06)
PROC: 0BH17EZ Insertion of Endotracheal Airway into Trachea, Via Natural or Artificial Opening (ICD-10-PCS; principal; 2018-02-06)
PROC: 03170JD Bypass Right Brachial Artery to Upper Arm Vein with Synthetic Substitute, Open Approach (ICD-10-PCS; 2018-02-07)
PROC: 05PY0JZ Removal of Synthetic Substitute from Upper Vein, Open Approach (ICD-10-PCS; 2018-02-07)
PROC: 30233N1 Transfusion of Nonautologous Red Blood Cells into Peripheral Vein, Percutaneous Approach (ICD-10-PCS; 2018-02-09)
PROC: 03WY0JZ Revision of Synthetic Substitute in Upper Artery, Open Approach (ICD-10-PCS; 2018-02-14)
DX: T82.7XXA Infection and inflammatory reaction due to other cardiac and vascular devices, implants and grafts, initial encounter (principal); Z99.81 Dependence on supplemental oxygen; Y83.2 Surgical operation with anastomosis, bypass or graft as the cause of abnormal reaction of the patient, or of later complication, without mention of misadventure at the time of the procedure; N18.6 End stage renal disease; I25.10 Atherosclerotic heart disease of native coronary artery without angina pectoris; T82.868A Thrombosis due to vascular prosthetic devices, implants and grafts, initial encounter; F41.9 Anxiety disorder, unspecified; G47.33 Obstructive sleep apnea (adult) (pediatric); I48.91 Unspecified atrial fibrillation; J44.9 Chronic obstructive pulmonary disease, unspecified; K81.1 Chronic cholecystitis; E11.22 Type 2 diabetes mellitus with diabetic chronic kidney disease; E83.51 Hypocalcemia; F17.200 Nicotine dependence, unspecified, uncomplicated; I42.9 Cardiomyopathy, unspecified; K21.9 Gastro-esophageal reflux disease without esophagitis; I50.22 Chronic systolic (congestive) heart failure; I13.2 Hypertensive heart and chronic kidney disease with heart failure and with stage 5 chronic kidney disease, or end stage renal disease; N25.81 Secondary hyperparathyroidism of renal origin; E87.2 Acidosis; G89.29 Other chronic pain; Z66 Do not resuscitate; Z51.5 Encounter for palliative care; E89.0 Postprocedural hypothyroidism; Z79.01 Long term (current) use of anticoagulants; Z98.84 Bariatric surgery status; Z79.82 Long term (current) use of aspirin; Z79.899 Other long term (current) drug therapy; Z86.14 Personal history of Methicillin resistant Staphylococcus aureus infection; Z86.73 Personal history of transient ischemic attack (TIA), and cerebral infarction without residual deficits; Z99.2 Dependence on renal dialysis; E87.6 Hypokalemia; D63.1 Anemia in chronic kidney disease; E43 Unspecified severe protein-calorie malnutrition; E88.09 Other disorders of plasma-protein metabolism, not elsewhere classified; Z68.1 Body mass index [BMI] 19.9 or less, adult; Y71.2 Prosthetic and other implants, materials and accessory cardiovascular devices associated with adverse incidents; R57.8 Other shock; D62 Acute posthemorrhagic anemia; F32.9 Major depressive disorder, single episode, unspecified; I25.2 Old myocardial infarction; E83.39 Other disorders of phosphorus metabolism
CPT/HCPCS: 36600; 71045; 80048; 80048 91; 80069; 80202; 82040; 82330; 82803; 83605; 84100; 85014; 85018; 85025; 85025 91; 85027; 85610; 85730; 86850; 86900; 86901; 86920; 87040; 87070; 87075; 87106; 87205; 87641; 93971; 94002; 94003; 94640; 94640 76; 94760; 94799; 97530 GO; 97530 GP; 99281; 99285; A6214; C1725; C1751; C1752; C1757; C1768; C1769; C1874; C1894; C2628; J0690; J0881; J1170; J1265; J1270; J1644; J2060; J2250; J2405; J2543; J2720; J3010; J3370; J7050; P9016; P9047; S0020